=== PATIENT | male | born 1960 | race Caucasian/White ===

== ENCOUNTER 2025-04-08 14:12 | Emergency (ER) | payer OTHER, SELFPAY ==
[2025-04-08 14:14] VITALS: BP 123/85
[2025-04-08 15:03] VITALS: BMI 34.7
--- NOTE | 2025-04-08 15:03 | EDRN ---
Pt states he arrives for R lower back pain that started this AM at 8-9/10. Pain much worse w/ movement. Pt states he has had back pain in past though not for awhile. Pt adds pain is spasming.
--- NOTE | 2025-04-08 15:05 | EDRN ---
Nancy DEJESUS in to see pt. Pt to BR after Nancy DEJESUS left room.
--- NOTE | 2025-04-08 15:11 | ED.GENMED ---
History of Present Illness
General
Chief Complaint: Back Pain
Source: patient
Time Seen by Provider: 04/08/25 15:00
History of Present Illness
History of Present Illness:
65-year-old male with past medical history of hypertension presenting to the emergency department for evaluation for right sided back/flank pain that started earlier today around 9:00, described to be a constant pain, intermittently will wax and
wane in intensity, worse positionally noting he is having a hard time laying flat and that pain also worsens with movement, currently a 6 out of 10, pain will intermittently radiate towards the right lower abdomen. There are no other associated
symptoms including nausea or vomiting, bowel or urinary symptoms, radicular symptoms, fevers or any other concerns. He has no history of similar. Social history noncontributory, no previous surgical history.
Past History
Past History
ED Past Medical History: HTN
ED Past Surgical History: None
Social History
Tobacco: Non-smoker
Alcohol: Occasional
Drug: None
Personal:
Living: with family
Review of Systems
Review of Systems
All Other Systems: ROS reviewed and negative except as documented in HPI and ROS
Phy Exam
Physical Exam
Physical Exam:
GENERAL: Alert , in no apparent distress
EYE: clear conjunctiva b/l
HEAD: NCAT
ENT: o/p clr, mmm.
CARDIAC: Regular rate and rhythm .
LUNGS: Clear breath sounds bilaterally, no acute respiratory distress, no wheezes/rales/rhonchi
ABDOMEN: Soft, without focal tenderness, no r/g, no cvat, negative Gupta sign, no tenderness at McBurney's point
BACK: No focal areas of tenderness, no rash, patient states twisting motions seem to make pain worse
NEUROLOGICAL: Alert and oriented
SKIN: Warm and dry, skin intact.
MUSCULOSKELETAL: well perfused.
PSYCH: Normal and appropriate interaction.
Scores
Heart Failure Risk
Heart Failure Risk Score: Not Applicable
Heart Score for Chest Pain Patients
STEMI patient?: Not applicable
Withdrawal Assessment of Alcohol
Withdrawal Assessment Completed?: Not applicable
Course
Orders/Labs/Results
Orders:
Orders
04/08/25 15:50
Complete Blood Count/With Diff Urgent
04/08/25 15:51
Comprehensive Metabolic Panel Urgent
Lipase Urgent
Urinalysis Reflex To Culture Urgent
Date Specimen was Collected: 04/08/25
Time Specimen was Collected: 15:44
04/08/25 16:25
CT Abd/pel Without Iv Or Oral Urgent
Comment:
Reason For Exam: right flank pain
04/08/25 16:39
Ketorolac [Toradol] 30 mg IV NOW STA
Abnormal Lab Results
04/08/25 04/08/25
15:50 15:51
Monocytes % 10.7 H %
(1.7-9.3)
Eosinophils % 6.6 H %
(0-6)
Glucose 100 H mg/dl
(70-99)
Total Bilirubin 2.5 H mg/dl
(0.2-1.3)
04/08/25 15:50
04/08/25 15:51
Vital Signs
Initial and Last Documented VS:
Initial Vital Signs
Temp Pulse Resp BP Pulse Ox
98.2 F 80 16 123/85 98
04/08/25 14:14 04/08/25 14:14 04/08/25 14:14 04/08/25 14:14 04/08/25 14:14
Last Documented Vital Signs
Temp Pulse Resp BP Pulse Ox
98.2 F 70 16 160/114 96
04/08/25 14:14 04/08/25 16:08 04/08/25 14:14 04/08/25 18:25 04/08/25 16:08
MDM/Problems Addressed
Differential Diagnosis Includes:
Muscular back pain
Renal/ureteral colic
Less concern for urinary tract infection
Prostatitis
Appendicitis
Pancreatitis
Less concern for vascular etiology
MDM/Problems Addressed:
65-year-old male presented to the ER for evaluation of right-sided back/flank pain, pain radiating to the right lower abdomen, did not take anything for pain prior to arrival and is declining anything for pain at this time. Patient does appear
mildly uncomfortable, difficult time sitting or laying on the hospital bed. Will check labs and urinalysis, low threshold to order CT based off of testing. Disposition pending.
*Radiology
Radiology exam reviewed: radiology read reviewed
*Pulse Oximetry
SaO2: 98
Oxygen Mode of Delivery: Room air
Patient hypoxic: no
*Critical Care Note
Total Time (30-74mins, 75-104mins- exclusive of procedures): Not Applicable
Patient Management
Escalation/DeEscalation of care consider admission/obs:
Patient with multiple CT findings, none acute nor emergent. Patient was provided with a printout of this report so as he can follow-up with his primary care provider especially with the documented left renal mass. At this time I do think it is
reasonable for patient to be discharged home, prescription for Valium sent to pharmacy. Patient aware of return precautions to the ER. Can use OTC medications as needed
ED Attending Note
-
Portions of this chart may have been created with voice recognition software.� Occasional wrong word or��sound alike� substitutions may have occurred due to the inherent limitations of voice recognition software.
Discharge Plan
Departure
Patient Disposition: Home (Routine Discharge)
Date of Disposition: 04/08/25
Time of Disposition: 18:14
Patient with high blood pressure during this ER visit?: Yes
Discharge Problem:
Dorsalgia
Instructions: Low Back Pain (DC)
Prescriptions:
New
diazepam [Valium] 5 mg tablet
5 mg PO BID PRN (Reason: muscle spasm) Qty: 10 0RF
Referrals:
Milton Guo DO [Family Provider, Family Practice]
Interventions
Interventions:
*Risk Screen - Suicide Last Done: 04/08/25 15:03
*General Assessment Last Done: 04/08/25 15:03
*Neglect/Abuse Screening Last Done: 04/08/25 15:03
*ED- Fall Risk Assessment Last Done: 04/08/25 15:03
*ED COVID-19 Vaccine History Last Done: 04/08/25 15:03
*Nursing Disposition Last Done: 04/08/25 18:25
ED-Musculoskeletal Assessment Last Done: 04/08/25 15:03
Discharge Date and Time
Discharge Date/Time: 04/08/25 18:25
Print Language: SPANISH
[2025-04-08 16:06] LABS: Hematocrit 44.0 % (39.0-52.0); Hemoglobin 15.1 g/dL (13.0-18.0); Mean Corp Hgb Conc. 34.3 g/dL (33.0-37.0); Mean Corpuscular Volume 87.8 fL (80.0-94.0); Nucleated Red Blood Cells % 0 % (-); Platelet Count 211 10^3/uL (130-400); Red Cell Dist. Width 12.9 % (11.5-14.5)
[2025-04-08 16:08] VITALS: BP 155/103
[2025-04-08 16:08] LABS: Urine Character Clear (Clear)
[2025-04-08 16:22] LABS: ALT (SGPT) 49 U/L (0-50); AST (SGOT) 40 U/L (17-59); Albumin 4.8 g/dl (3.5-5.0); Alkaline Phosphatase 74 U/L (38-126); Blood Urea Nitrogen 20 mg/dl (9-20); Calcium 9.9 mg/dl (8.4-10.2); Carbon Dioxide 25 mmol/L (22-30); Chloride 105 mmol/L (98-107); Estimated Creatinine Clearance 101 ml/min; Glucose 100 mg/dl (70-99); Lipase 136 U/L (23-300); Potassium 4.3 mmol/L (3.5-5.1); Sodium 138 mmol/L (135-145); Total Protein 8.1 g/dl (6.3-8.2); eGFR > 60.00
--- NOTE | 2025-04-08 16:24 | EDRN ---
Nancy Mc PA in room w/ pt at this time.
[2025-04-08] MEDS: TORADOL 30 MG IV (16:44)
--- NOTE | 2025-04-08 16:48 | EDRN ---
Pt's spouse requested pt get pain medication. Pt stated pain much worse now a solid 04/13 on arrival of Vin, CT scan transport at 16:32. This RN TT'd Nancy DEJESUS at 16:34 for pain medication. Nancy DEJESUS ordered toradol 30 mg IV which has been
administered and said in his text he had offered pain medication in each of his 2 visits w/ pt and pt had declined any pain medication.
--- NOTE | 2025-04-08 16:52 | EDRN ---
CT scan was called and informed pt can go to CT at this time.
--- NOTE | 2025-04-08 18:07 | EDRN ---
Nancy Mc PA in room w/pt at this time.
[2025-04-08 18:25] VITALS: BP 160/114
--- NOTE | 2025-04-08 18:25 | EDRN ---
Pt has not taken his evening BP medication. Pt advised to watch and monitor his BP over next couple of days.
== END 2025-04-08 18:25 | disposition home or self-care (01) ==
LOC: EMR 14:12
PROVIDERS: Physician Assistant Medical; EMERGENCY PHYSICIAN Emergency Medicine; FAMILY PHYSICIAN Family Medicine
DX: M54.50 Low back pain, unspecified (principal); I10 Essential (primary) hypertension; R10.31 Right lower quadrant pain; N28.89 Other specified disorders of kidney and ureter
CPT/HCPCS: 96374; 99284; 74176; 80053; 81003; 83690; 85025